=== PATIENT | female | born 1990 | race Caucasian/White ===

== ENCOUNTER → 2018-08-16 | Outpatient (CLI) | payer MEDICAID | LOC: ZCOL.LAB 17:18 | DX: N91.2 Amenorrhea, unspecified (principal) ==

== ENCOUNTER → 2018-11-29 | Outpatient (CLI) | payer MEDICAID | LOC: COL.RAD 09:45 | DX: O99.89 Other specified diseases and conditions complicating pregnancy, childbirth and the puerperium (principal); K59.00 Constipation, unspecified; R10.9 Unspecified abdominal pain; R19.7 Diarrhea, unspecified; R12 Heartburn; Z3A.22 22 weeks gestation of pregnancy ==

== ENCOUNTER 2019-03-26 04:03 | Inpatient (IN) | payer MEDICAID ==
[~2019-03-26] VITALS: Ht 154.9 cm; Wt 80.5 kg
[2019-03-26] VITALS (36 sets, daily range): BP systolic 97–156; BP diastolic 50–102; PULSE 80–134; TEMP 97.9–98.5
--- NOTE | 2019-03-26 04:07 | NUR ---
0407- PATIENT BEING SEEN AT 39 WEEKS, G4L3 WITH POSSIBLE LEAKAGE OF AMNIOTIC FLUID. 0413- EFM APPLIED AT THIS TIME. VSS. 0420- SVE /-3, GROSSLY RUPTURED- CLEAR FLUID. 0430- DR. VINSON CALLED, ADMIT ORDERS RECEIVED
[2019-03-26] MEDS ORDERED: PRENATAL 191 TAB PO (04:55)
[2019-03-26 06:13] LABS: HEMOGLOBIN 10.9 g/dl (12.5-16.0); MEAN CELL VOLUME 93 fl (80.0-100.0); MEAN CORPUSCULAR HEMOGLOBIN 31 pg (27.0-31.0); MEAN CORPUSCULAR HGB CONC 33 g/dl (33.0-37.0); MEAN PLATELET VOLUME 10.3 fl (7.4-10.4); PLATELET COUNT 248 K/mm3 (130-400); RED BLOOD COUNT 3.53 M/mm3 (4.10-5.30); REDCELL DISTRIBUTION WIDTH-CV 13.2 % (11.5-14.5)
[2019-03-26 06:14] LABS: HEMATOCRIT 32.9 % (37.0-47.0)
--- NOTE | 2019-03-26 06:20 | NUR ---
Report from Ciara Sebastian RN and care of patient assumed. RN at bedside to introduce self and review plan of care. Patient denies questions and reports she is comfortable with epidural. Denies need.
--- NOTE | 2019-03-26 08:45 | NUR ---
Dr. Lau at bedside. Reviews FHR strip. SVE per provider /-3 with forebag noted. AROM of forebag at 0849 and clear fluid noted. Pericare given and patient repositioned sitting upright in bed. Orders to continue Pitocin augmentation. Patient comfortable with epidural.
[2019-03-26 09:46] LABS: LYMPHOCYTE 22 % (20.0-51.0); METAMYELOCYTE 1 % (0-0); NEUTROPHILS 73 % (42.0-75.2); PLATELET ESTIMATE NORMAL (NORMAL)
--- NOTE | 2019-03-26 10:40 | NUR ---
See physician notification. RN remains at bedside. 1045- Patient reports urge to push. SVE 10/+2. Dr. Lau called again and notified, physician in transit. RN remains at bedside. Villatoro catheter removed prior to pushing. Pericare given. Nursery RN to bedside. 1052- Dr. Lau at bedside. Patient assisted to footplates and prepped for pushing. 1055- Patient begins pushing with contractions with physican at bedside. of viable female infant attended by Dr. Lau. Infant to mother's abdomen, care of to Cady Gill RN. Apgars 04/06/. 1059- Spont. delivery of placenta. Pitocin bolus started at 333ml/hr/protocol. Fundal massage by RN, firm and at umbilicus. Bilateral labial lacerations repaired, patient tolerates well. Vaginal bleeding WNL. Pericare given and ice pack applied. Patient updated on plan of care and safety reviewed.
--- NOTE | 2019-03-26 13:00 | NUR ---
Two golf ball sized clots expressed with fundal check. Firms with massage, bladder noted distended. Patient unable to hold bilateral leg lock. Discussed options, plan of care to perform straight catheterization. Straight cath performed, vaginal bleeding WNL following intervention. Pericare given, ice ice pack, underwear and gown applied. Will recheck bleeding shortly.
--- NOTE | 2019-03-27 | NUR ---
Pt states "I'm peeing alot, I just didn't want to measure it"
--- NOTE | 2019-03-27 08:00 | NUR ---
Rests in bed, alert. Ibuprofen 600 mg given as ordered for pain. Denies any other needs at this time.
[2019-03-27 08:15] VITALS: BP 98/50; PULSE 71; TEMP 97.8
[2019-03-27] MEDS ORDERED: IBU600 MG PO (08:47)
--- NOTE | 2019-03-27 09:39 | NUR ---
Initial visit attempt; Family resting, Electronic Systems Technician left card of congratulations and God's blessings for the of their daughter and information regarding the availability of spiritual care at [facility].
--- NOTE | 2019-03-27 14:00 | NUR ---
Rests in bed, alert. Denies any needs at this time.
--- NOTE | 2019-03-27 15:00 | NUR ---
Let patient know that babys bilirubin elevated. Let her know that Dr. Michelle wants baby to stay until tomorrow. Patient states has to go tonight. States no one to take care of my other children tomorrow. Says has to work. Dr Michelle called and updated on patients request to go home. Dr. Michelle states that she wants her to stay the night and have babies bilirubin repeated in the morning. States she can have bilirubin done at 0600 and she will come in at 0700. Let patient know this. States just overwhelmed with all of this. Says will stay until tomorrow.
[2019-03-27 16:15] VITALS: BP 118/65; PULSE 100; TEMP 97.8
--- NOTE | 2019-03-27 16:15 | NUR ---
Called to patients room. States wanting to go home. Says will sign ama. Also says will come back tomorrow to billirubin test.
--- NOTE | 2019-03-27 17:30 | NUR ---
Patient states that she has to leave because of working tomorrow. Benefits explaine to patient. Verbalizes understanding. States will return in a.m. for repeat bilirubin. Patient signs against medical advice paper. States understanding.
--- NOTE | 2019-03-27 22:07 | NUR ---
PT IS ESCORTED OFF THE UNIT WITH HER BABY AND FAMILY BY THE FINISH MIXER.
== END 2019-03-27 18:38 | disposition home or self-care (01) | DRG 807 ==
LOC: LDRO 04:03 → OB 04:33 → LDR 04:33 → OB 13:25
PROVIDERS: Obstetrics & Gynecology; ADMIT Obstetrics & Gynecology
PROC: 10E0XZZ Delivery of Products of Conception, External Approach (ICD-10-PCS; principal; 2019-03-26)
PROC: 0HQ9XZZ Repair Perineum Skin, External Approach (ICD-10-PCS; 2019-03-26)
DX: O99.824 Streptococcus B carrier state complicating childbirth (principal); Z37.0 Single live birth; O99.02 Anemia complicating childbirth; D64.9 Anemia, unspecified; O69.81X0 Labor and delivery complicated by cord around neck, without compression, not applicable or unspecified; O70.0 First degree perineal laceration during delivery; Z3A.38 38 weeks gestation of pregnancy; Z28.21 Immunization not carried out because of patient refusal
CPT/HCPCS: J2405; J2540; J2590; J2795; J7120

== ENCOUNTER 2019-07-31 13:09 | Emergency (ER) | payer SELFPAY ==
[~2019-07-31] VITALS: Ht 154.9 cm; Wt 59.1 kg
[~2019-07-31 13:09] MED LIST: IBU600 MG PO; PRENATAL 191 TAB PO
[2019-07-31 13:28] VITALS: BP 108/66; TEMP 97.7
[2019-07-31 13:41] LABS: COLLECTION METHOD CLEAN CATCH
[2019-07-31 13:56] LABS: MUCOUS Present /lpf; PH 7 (5-8); SQUAMOUS EPITHELIAL 0-2 /hpf; URINE APPEARANCE Clear; URINE BACTERIA Rare /hpf; URINE BILIRUBIN Negative (NEGATIVE); URINE BLOOD Negative (NEGATIVE); URINE COLOR Yellow; URINE GLUCOSE Negative (NEGATIVE); URINE KETONE Negative (NEGATIVE); URINE LEUKOCYTE ESTERASE Trace (NEGATIVE); URINE NITRATE Negative (NEGATIVE); URINE PROTEIN(semi-quant) Negative (NEGATIVE); URINE RBC 0-2 /hpf
[2019-07-31] MEDS ORDERED: CEPHALEXIN500 M1 PO (14:57)
[2019-07-31] MEDS ORDERED: PYRIDIUM200 M1 PO (14:58)
[2019-07-31 15:20] VITALS: PULSE 77
== END 2019-07-31 15:20 | disposition home or self-care (01) ==
LOC: COL.ER 13:09
PROVIDERS: Family Medicine
DX: N39.0 Urinary tract infection, site not specified (principal); Z87.442 Personal history of urinary calculi

== ENCOUNTER 2020-09-11 21:57 | Emergency (ER) | payer SELFPAY ==
[~2020-09-11] VITALS: Ht 157.5 cm; Wt 64.1 kg
[~2020-09-11 21:57] MED LIST changes: +CEPHALEXIN500 M1 PO; +PYRIDIUM200 M1 PO
[2020-09-11 22:05] VITALS: TEMP 97.7
[2020-09-11 23:40] VITALS: BP 112/70; PULSE 83
== END 2020-09-11 23:40 | disposition home or self-care (01) ==
LOC: COL.ER 21:57
DX: R51.9 Headache, unspecified (principal); F41.9 Anxiety disorder, unspecified
CPT/HCPCS: J1200; J1885; J2765

== ENCOUNTER 2020-09-13 20:18 | Emergency (ER) | payer SELFPAY ==
[~2020-09-13] VITALS: Ht 157.5 cm; Wt 63.6 kg
[2020-09-13 20:28] VITALS: BP 133/62; TEMP 99.6
[2020-09-13 21:04] LABS: COLLECTION METHOD CLEAN CATCH
[2020-09-13 21:07] LABS: BASO # 0.1 (0.0-0.2); BASO % 0.5 % (0.0-2.0); EOS % 0.2 % (0-4.0); GRAN # 7.2 (1.4-6.5); GRAN % 73.4 % (42.2-75.2); HEMOGLOBIN 13.6 g/dl (12.5-16.0); MEAN CELL VOLUME 90 fl (80.0-100.0); MEAN CORPUSCULAR HEMOGLOBIN 31 pg (27.0-31.0); MEAN CORPUSCULAR HGB CONC 35 g/dl (33.0-37.0); MONO # 0.6 (0.1-0.6); MONO % 5.6 % (1.7-9.3); PLATELET COUNT 315 K/mm3 (130-400); RED BLOOD COUNT 4.34 M/mm3 (4.10-5.30); REDCELL DISTRIBUTION WIDTH-CV 13.1 % (11.5-14.5)
[2020-09-13 21:10] LABS: PH 5 (5-8); SQUAMOUS EPITHELIAL 0-2 /hpf; URINE APPEARANCE Clear; URINE BACTERIA None Seen /hpf; URINE BILIRUBIN Negative (NEGATIVE); URINE BLOOD Negative (NEGATIVE); URINE COLOR Yellow; URINE GLUCOSE Negative (NEGATIVE); URINE KETONE 1+ (NEGATIVE); URINE LEUKOCYTE ESTERASE Negative (NEGATIVE); URINE NITRATE Negative (NEGATIVE); URINE PROTEIN(semi-quant) Negative (NEGATIVE); URINE RBC 0-2 /hpf; URINE UROBILINOGEN Negative (NEGATIVE)
[2020-09-13 21:15] LABS: ALBUMIN 5.1 gm/dL (3.5-5.0); CALCIUM 9.3 mg/dL (8.4-10.2); CREATININE, serum 0.76 (0.52-1.25); POTASSIUM 3.9 mmol/L (3.4-5.0); TOTAL PROTEIN 8.8 gm/dL (6.4-8.2)
[2020-09-13 21:42] LABS: THYROID STIMULATING HORMONE 0.613 uIU/mL (0.465-4.680)
[2020-09-14 00:46] VITALS: PULSE 93
== END 2020-09-14 00:46 | disposition home or self-care (01) ==
LOC: COL.ER 20:18
PROVIDERS: Nurse Practitioner
DX: R10.13 Epigastric pain (principal)
CPT/HCPCS: J2270; J2405; J7030; Q9967

== ENCOUNTER 2020-09-22 09:35 | Day surgery (SDC) | payer SELFPAY ==
[~2020-09-22] VITALS: Ht 157.5 cm; Wt 60.6 kg
[2020-09-22 10:05] VITALS: BP 103/83; PULSE 92; TEMP 98.9
[2020-09-22 11:15] VITALS: BP 95/69; PULSE 93; TEMP 99.3
--- NOTE | 2020-09-22 11:15 | NUR ---
TO BAY 3 PER CART FROM ENDOSCOPY. ALERT AND TALKING TO STAFF. AMBULATED TO RECLINER WITH ASSIST. REFUSED ANYTHING TO EAT OR DRINK.
[2020-09-22 11:30] VITALS: BP 95/68; PULSE 78
--- NOTE | 2020-09-22 11:30 | NUR ---
DR RUTHERFORD INTO TALK WITH PATIENT.
[2020-09-22 11:45] VITALS: BP 97/63; PULSE 76
--- NOTE | 2020-09-22 11:45 | NUR ---
RESTING AND TEXTING .
--- NOTE | 2020-09-22 12:00 | NUR ---
RECEIVED DISCHARGE INSTRUCTIONS AND VERBALIZED UNERSTANDING. DISCONTINUED IV AND INT- CATHETER INTACT. PATIENT GETTING DRESSED.
--- NOTE | 2020-09-22 12:10 | NUR ---
DISCHARGED PER WC BY NURSING STAFF TO PRIVATE CAR IN CARE OF .
== END 2020-09-22 12:22 | disposition home or self-care (01) ==
LOC: SDCO 09:35
DX: K52.89 Other specified noninfective gastroenteritis and colitis (principal); K29.30 Chronic superficial gastritis without bleeding; K62.89 Other specified diseases of anus and rectum; K92.1 Melena; K59.00 Constipation, unspecified; Q39.8 Other congenital malformations of esophagus; K64.8 Other hemorrhoids; Z88.1 Allergy status to other antibiotic agents
CPT/HCPCS: J2704; J7030

== ENCOUNTER 2021-04-04 01:49 | Emergency (ER) | payer SELFPAY ==
[~2021-04-04] VITALS: Ht 154.9 cm; Wt 54.5 kg
[2021-04-04 02:30] LABS: COLLECTION METHOD CLEAN CATCH
[2021-04-04 02:36] LABS: BASO % 0.5 % (0.0-2.0); EOS # 0.1 (0.0-0.7); EOS % 2.2 % (0-4.0); GRAN # 2.8 (1.4-6.5); GRAN % 42.4 % (42.2-75.2); HEMATOCRIT 42.8 % (37.0-47.0); HEMOGLOBIN 14.5 g/dl (12.5-16.0); LYMPH # 3.1 (1.2-3.4); LYMPH % 48.1 % (20.0-51.0); MEAN CELL VOLUME 90 fl (80.0-100.0); MEAN CORPUSCULAR HEMOGLOBIN 31 pg (27.0-31.0); MEAN CORPUSCULAR HGB CONC 34 g/dl (33.0-37.0); MEAN PLATELET VOLUME 10.2 fl (7.4-10.4); MONO # 0.4 (0.1-0.6); MONO % 6.6 % (1.7-9.3); PLATELET COUNT 262 K/mm3 (130-400); RED BLOOD COUNT 4.74 M/mm3 (4.10-5.30); REDCELL DISTRIBUTION WIDTH-CV 12.3 % (11.5-14.5)
[2021-04-04 02:37] LABS: MUCOUS Present /lpf; PH 7 (5-8); SQUAMOUS EPITHELIAL 0-2 /hpf; URINE APPEARANCE Clear; URINE BACTERIA None Seen /hpf; URINE BILIRUBIN Negative (NEGATIVE); URINE BLOOD Negative (NEGATIVE); URINE COLOR Yellow; URINE GLUCOSE Negative (NEGATIVE); URINE KETONE Trace (NEGATIVE); URINE LEUKOCYTE ESTERASE Negative (NEGATIVE); URINE NITRATE Negative (NEGATIVE); URINE PROTEIN(semi-quant) Negative (NEGATIVE); URINE RBC 0-2 /hpf; URINE UROBILINOGEN Negative (NEGATIVE); URINE WBC 0-2 /hpf
[2021-04-04 02:45] LABS: ALANINE AMINOTRANSFERASE 18 U/L (4-34); ALBUMIN 5.6 gm/dL (3.5-5.0); ALKALINE PHOSPHATASE 66 U/L (50-136); ANION GAP 15 mmol/L (7-16); AST,SGOT 31 U/L (15-37); BILIRUBIN,TOTAL 0.8 mg/dL (0.0-1.0); BLOOD UREA NITROGEN 9 mg/dL (7-17); CALCIUM 10.2 mg/dL (8.4-10.2); CARBON DIOXIDE 22 mmol/L (22-30); CHLORIDE 103 mmol/L (98-107); CREATINE KINASE 82 U/L (30-135); CREATININE, serum 0.71 (0.52-1.25); GLUCOSE 97 mg/dL (74-106); LIPASE 236 U/L (23-300); POTASSIUM 3.5 mmol/L (3.4-5.0); SODIUM 140 mmol/L (137-145); TOTAL PROTEIN 9.7 gm/dL (6.4-8.2)
[2021-04-04 03:10] LABS: TROPONIN-I < 0.012 ng/mL (0.000-0.035)
[2021-04-04] MEDS ORDERED: MUCINEX 60600 MG/TA1 PO (03:28)
[2021-04-04] MEDS ORDERED: ZOFRAN ODT4 MG PO (03:28)
[2021-04-04 05:26] VITALS: BP 113/72; PULSE 79; TEMP 98.1
== END 2021-04-04 03:56 | disposition home or self-care (01) ==
LOC: COL.ER 01:49
PROVIDERS: Emergency Medicine
DX: R05 Cough (principal); R10.13 Epigastric pain; M79.10 Myalgia, unspecified site
CPT/HCPCS: J1885; J2405; J7030